=== PATIENT | female | born 1990 | race Caucasian/White ===

== ENCOUNTER 2017-03-02 01:39 | Emergency (ER) | payer OTHER ==
[2017-03-02 02:41] LABS: BILIRUBIN NEGATIVE (NEGATIVE); BLOOD 1+ Ery/uL (NEGATIVE); CLARITY CLEAR (CLEAR); COLOR YELLOW (YELLOW); GLUCOSE (U) NORMAL (NORMAL); KETONE (U) NEGATIVE (NEGATIVE); LEUKOCYTES TRACE Leu/uL (NEGATIVE); NITRITE NEGATIVE (NEGATIVE); PROTEIN NEGATIVE (NEGATIVE); SPECIFIC GRAVITY 1.015 (1.001-1.030); UROBILINOGEN 0.2 mg/dL (0.2-1.0); pH 6.5 (5.0-9.0)
[2017-03-02 02:48] LABS: BACTERIA TRACE
== END 2017-03-02 04:03 | disposition home or self-care (01) ==
LOC: FER 01:39
PROVIDERS: Emergency Medicine
DX: R11.10 Vomiting, unspecified (principal); E86.0 Dehydration; R19.7 Diarrhea, unspecified; G47.00 Insomnia, unspecified
CPT/HCPCS: 81001; J2405